=== PATIENT | male | born 1995 | race Caucasian/White ===

== ENCOUNTER 2023-01-31 11:45 | Emergency (ER) | payer OTHER, SELFPAY ==
[2023-01-31 11:50] VITALS: BP 139/77; PULSE 63; RESP 18; TEMP 36.7; O2SAT 100; BMI 31.1
--- NOTE | 2023-01-31 13:32 | XR_ITS ---
The [address] [address] Patient Name: DANNIELLE BAILEY MRN: [id number] date: 1995 Sex: M Assigned Patient Location: ER Current Patient Location: ER Accession/Order Number: [id number] Exam Date: 01/31/2023 13:53 Report Date: 01/31/2023 14:08 At the request of: ROBYN LOZA Procedure: XR chest 1V EXAM: XR chest 1V at 1323 hours HISTORY: SOB COMPARISON: None. TECHNIQUE: AP upright portable chest x-ray FINDINGS: The heart is not enlarged and the vasculature is not distended. No acute infiltrate, effusion or pneumothorax is identified. The osseous structures are grossly intact. XR/XR chest 1V IMPRESSION: No acute infiltrate or evidence of cardiac decompensation. Direct comparison with a previous study would be helpful in determining the chronicity of these findings. Electronically authenticated by: JAYME FOLEY Date: 01/31/2023 14:08
--- NOTE | 2023-01-31 13:32 | ECG_ITS ---
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
[2023-01-31 13:50] LABS: Basophils Percent Auto 0.5 % (0.2-2.0); Eosinophils Absolute Auto 0.1 10^3/uL (0.0-0.7); Eosinophils Percent Auto 1.7 % (0.9-7.0); Hematocrit 40.2 % (42.0-54.0); Hemoglobin 13.9 g/dL (14.0-18.0); Lymphocytes Absolute Auto 2.2 10^3/uL (1.2-3.8); Lymphocytes Percent Auto 38.1 % (20.5-60.0); Mean Corpuscular HGB Conc 34.6 g/dL (29.9-35.2); Mean Corpuscular Volume 83.8 fL (80.0-94.0); Mean Platelet Volume 9.5 fL (9.5-13.5); Monocytes Absolute Auto 0.4 10^3/uL (0.3-0.8); Monocytes Percent Auto 6.3 % (1.7-12.0); Neutrophils Absolute Auto 3.1 10^3/uL (1.4-6.5); Neutrophils Percent Auto 53.4 % (43.0-75.0); Platelet Count 206 10^3/uL (150-450); Red Cell Distribution Width 13.2 % (11.0-15.0); White Blood Count 5.9 10^3/uL (4.0-11.0)
[2023-01-31 13:59] LABS: Anion Gap 12.2; BUN Creatinine Ratio 14.1; Calcium 9.1 mg/dL (8.5-10.1); Carbon Dioxide 29.8 mmol/L (21.0-32.0); Chloride 102 mmol/L (98-107); Estimated GFR (African America >60 (>=60); Estimated GFR (Non-African Ame >60 (>=60); Glucose 92 mg/dL (74-106); Sodium 140 mmol/L (136-145)
--- NOTE | 2023-01-31 14:21 | ED.GENADUL1 ---
HPI - General Adult General Chief complaint: Recheck/Abnormal Lab/Rx Stated complaint: NEEDS TESTED FOR LEAD POISONING Time Seen by Provider: 01/31/23 13:13 History of Present Illness HPI narrative: 27-year-old male presents for some generalized symptoms. He is concerned about lead. 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 He hasn't had a fever or vomiting and he is not complaining of shortness of breath. Sometimes he feels dizzy. Related Data Allergies Allergy/AdvReac Type Severity Reaction Status Date / Time No Known Drug Allergies Allergy Verified 01/31/23 11:50 Review of Systems ROS Narrative A ten point review of systems is negative except as noted above. PFSH PFSH Social History Smoking status: Current every day smoker Exam Narrative Exam Narrative: Nurses note and vital signs reviewed and patient is not hypoxic. General: The patient appears well and in no apparent distress. Patient is resting comfortably on cart. Skin: Warm, dry, no pallor noted. There is no rash noted. Head: Normocephalic, atraumatic Eye: Normal conjunctiva, no drainage Ears, Nose, Mouth, and Throat: oral mucosa is moist. Nares patent. Cardiovascular: Regular Rate and Rhythm Respiratory: Patient is in no distress, no accessory muscle use, lungs are clear to auscultation, no wheezing, rales or rhonchi Back: non-tender GI: ssoft and nontender Musculoskeletal: The patient has no evidence of calf tenderness, no pitting edema, symmetrical pulses noted bilaterally Neurological: A&O x4, normal speech Psychiatric: Cooperative Constitutional Vital Signs, click to edit/add: Last Vital Signs Temp 98.1 F 01/31/23 11:50 Pulse 63 01/31/23 11:50 Resp 18 01/31/23 11:50 BP 139/77 01/31/23 11:50 Pulse Ox 100 01/31/23 11:50 O2 Del Method Room Air 01/31/23 11:50 Course Vital Signs Vital signs: Vital Signs Temperature 98.1 F 01/31/23 11:50 Pulse Rate 63 01/31/23 11:50 Respiratory Rate 18 01/31/23 11:50 Blood Pressure 139/77 01/31/23 11:50 Pulse Oximetry 100 01/31/23 11:50 Oxygen Delivery Method Room Air 01/31/23 11:50 Temperature 98.1 F 01/31/23 11:50 Pulse Rate 63 01/31/23 11:50 Respiratory Rate 18 01/31/23 11:50 Blood Pressure 139/77 01/31/23 11:50 Pulse Oximetry 100 01/31/23 11:50 Oxygen Delivery Method Room Air 01/31/23 11:50 Medical Decision Making MDM Narrative Medical decision making narrative: laboratory analysis as well as his chest x-ray are negative. He'll be discharged home and referred to PCP for follow-up. There is no indication for emergent leg testing at this point. Differential Diagnosis Differential Diagnosis: chemical exposure, headache, anemia, electrolyte imbalance Lab Data Lab results reviewed: Yes I reviewed the patient's lab results Labs: Lab Results 01/31/23 Range/Units 13:44 WBC 5.9 (4.0-11.0) 10^3/uL RBC 4.80 (4.70-6.10) 10^6/uL Hgb 13.9 L (14.0-18.0) g/dL Hct 40.2 L (42.0-54.0) % MCV 83.8 (80.0-94.0) fL MCH 29.0 (25.9-34.0) pg MCHC 34.6 (29.9-35.2) g/dL RDW 13.2 (11.0-15.0) % Plt Count 206 (150-450) 10^3/uL MPV 9.5 (9.5-13.5) fL Neut % (Auto) 53.4 (43.0-75.0) % Lymph % (Auto) 38.1 (20.5-60.0) % [place] % (Auto) 6.3 (1.7-12.0) % Eos % (Auto) 1.7 (0.9-7.0) % Baso % (Auto) 0.5 (0.2-2.0) % Neut # (Auto) 3.1 (1.4-6.5) 10^3/uL Lymph # (Auto) 2.2 (1.2-3.8) 10^3/uL [place] # (Auto) 0.4 (0.3-0.8) 10^3/uL Eos # (Auto) 0.1 (0.0-0.7) 10^3/uL Baso # (Auto) 0.0 (0.0-0.1) 10^3/uL Abs Immat Gran (auto) 0.00 (0.00-0.03) 10^3/uL Imm/Tot Granulo (auto) 0.0 (0.0-0.5) % Sodium 140 (136-145) mmol/L Potassium 4.0 (3.5-5.1) mmol/L Chloride 102 (98-107) mmol/L Carbon Dioxide 29.8 (21.0-32.0) mmol/L Anion Gap 12.2 BUN 14.0 (7.0-18.0) mg/dL Creatinine 0.99 (0.70-1.30) mg/dL Est GFR ( Amer) >60 (>=60) Est GFR (Non-Af Amer) >60 (>=60) BUN/Creatinine Ratio 14.1 Glucose 92 (74-106) mg/dL Calcium 9.1 (8.5-10.1) mg/dL Imaging Data Chest x-ray: Radiologist's impression: Procedure: XR chest 1V EXAM: XR chest 1V at 1323 hours HISTORY: SOB COMPARISON: None. TECHNIQUE: AP upright portable chest x-ray FINDINGS: The heart is not enlarged and the vasculature is not distended. No acute infiltrate, effusion or pneumothorax is identified. The osseous structures are grossly intact. IMPRESSION: No acute infiltrate or evidence of cardiac decompensation. Direct comparison with a previous study would be helpful in determining the chronicity of these findings. Electronically authenticated by: JAYME FOLEY Date: 01/31/2023 14:08 Discharge Plan Discharge Chief Complaint: Recheck/Abnormal Lab/Rx Clinical Impression: Headache Patient Disposition: Home, Self-Care Time of Disposition Decision: 14:20 Condition: Good Mode of Transportation: Private Vehicle Instructions: Acute Headache (ED) Stand Alone Forms: Portal Instructions Referrals: Physician,Non-Staff, MD [Primary Care Provider] - 1 week
== END 2023-01-31 14:35 | disposition home or self-care (01) ==
PROVIDERS: Emergency Provider Emergency Medicine
DX: R51.9 Headache, unspecified (principal); F17.210 Nicotine dependence, cigarettes, uncomplicated
CPT/HCPCS: 36415; 71045; 80048; 85025; 93005; 99285

== ENCOUNTER 2025-01-29 11:14 | Emergency (ER) | payer OTHER, SELFPAY ==
[2025-01-29 11:21] VITALS: BP 134/82; PULSE 60; TEMP 37; O2SAT 99; BMI 32.9
--- NOTE | 2025-01-29 11:31 | US_ITS ---
The [address] [address] Patient Name: DANNIELLE BAILEY MRN: [id number] date: 1995 Sex: M Assigned Patient Location: ER Current Patient Location: ER Accession/Order Number: [id number] Exam Date: 01/29/2025 11:40 Report Date: 01/29/2025 12:31 At the request of: KALIE TOBIAS MD Procedure: US scrotum doppler SCROTAL ULTRASOUND WITH DUPLEX IMAGING COMPARISON: none CLINICAL DATA: Right testicular pain for the past 3 days The right testis measures 4.8 x 2.7 x 3.0 cm. The left measures 4.4 x 2.6 x 3.3 cm. There is normal echogenicity. There is a small calcification at the inferior pole of the right testis. There are no solid testicular masses. There is documentation of bilateral duplex and color Doppler testicular blood flow. The epididymal heads are similar in size. There is a tiny 5 mm right epididymal cyst. There are prominent vessels adjacent to the testes with increased blood flow on Valsalva suggesting varicoceles. There is a tiny left hydrocele. US/US scrotum doppler IMPRESSION: NO INTRATESTICULAR MASS OR TORSION. 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 TINY RIGHT EPIDIDYMAL CYST. TINY LEFT HYDROCELE. Impression dictated by: Aminah Archer M.D. 01/29/2025 12:31 PM Dictation Location: [place] [address] Electronically authenticated by: [id number] Y Date: 01/29/2025 12:31
[2025-01-29 11:54] LABS: Glucose Urine UA NEGATIVE (NEGATIVE)
--- NOTE | 2025-01-29 12:47 | ED_ITS ---
HPI HPI - General Adult General Chief complaint: Urogenital-Male Stated complaint: TESTICLE PAIN Time Seen by Provider: 01/29/25 11:30 Source: patient Mode of arrival: walk-in Limitations: no limitations History of Present Illness HPI narrative: The patient is coming to the ER with a complaint of right testicular pain that been going on for the last few days, patient denies any fall or trauma he denies any penile discharge, mentioned that he is sexually active and he does not usually use protection The patient denies any fever or chills or any other concerns The pain is mostly to the posterior aspect of the testicles Related Data Previous Rx's ?Medication ?Instructions ?Recorded doxycycline hyclate 100 mg tablet 100 mg PO BID 7 days #14 tabs 01/29/25 naproxen 250 mg tablet 250 mg PO Q12H PRN pain #20 tabs 01/29/25 Allergies Allergy/AdvReac Type Severity Reaction Status Date / Time No Known Drug Allergies Allergy Verified 01/29/25 11:24 Opioid HPI Opioid Management Most Recent Opioid Data: Last Pain Scale 5 Today, 11:21 Review of Systems ROS Status of ROS 10 or more systems reviewed and unremark able except as noted in history and below PFSH PFSH Social History Smoking status: Current every day smoker Little interest or pleasure in doing things: not at all Feeling down, depressed, or hopeless: not at all Exam Narrative Exam Narrative: Nurses notes and vital signs reviewed and patient is not hypoxic. General: Well-appearing and in no apparent distress. Skin: Warm, dry, no pallor noted. No rash. Head: Normocephalic, atraumatic. Neck: Supple, non-tender. Cardiovascular: Regular Rate and Rhythm without murmur, gallop or rub. Respiratory: No accessory muscle use or respiratory distress. Lungs are clear to auscultation, no wheezing, rales or rhonchi Chest Wall: no tenderness GI: Abdomen is soft, non-distended. Normal bowel sounds. No masses appreciated. No tenderness to palpation. No rebound, guarding, or rigidity noted. Scrotal exam done with the presence of the caring nurse: The patient have no testicular swelling no enlargement of the testicles as well as no elevation the patient was complaining tenderness upon palpation of the posterior aspect of the right testicle but there is no obvious skin changes there is also no penile changes no rash Neurological: A&O x4. No cranial nerve dysfunction observed. No truncal ataxia. Moves all extremities. Sensation intact. Psychiatric: Cooperative and interactive. Normal mood and affect. Constitutional Vital Signs, click to edit/add: Last Vital Signs Temp 98.6 F 01/29/25 11:21 Pulse 60 01/29/25 11:21 Resp 14 01/29/25 11:21 BP 134/82 01/29/25 11:21 Pulse Ox 99 01/29/25 11:21 O2 Del Method Room Air 01/29/25 11:21 Course Vital Signs Vital signs: Vital Signs Temperature 98.6 F 01/29/25 11:21 Pulse Rate 60 01/29/25 11:21 Respiratory Rate 14 01/29/25 11:21 Blood Pressure 134/82 01/29/25 11:21 Pulse Oximetry 99 01/29/25 11:21 Oxygen Delivery Method Room Air 01/29/25 11:21 Temperature 98.6 F 01/29/25 11:21 Pulse Rate 60 01/29/25 11:21 Respiratory Rate 14 01/29/25 11:21 Blood Pressure 134/82 01/29/25 11:21 Pulse Oximetry 99 01/29/25 11:21 Oxygen Delivery Method Room Air 01/29/25 11:21 Medical Decision Making MDM Narrative Medical decision making narrative: Urinalysis showed no acute pathology Ultrasound of the testicles showed no acute pathology as well although there is a epididymal cyst The patient will be treated for possible epididymitis specially that he is sexually active he will be treated with ceftriaxone IM in the ER as well as doxycycline to go home as well as naproxen for pain The patient is to follow up with primary care physician in next 2-3 days or to return to the emergency department should any of the signs or symptoms worsen or new symptoms develop. The patient agrees with the following Diagnosis and Treatment plan and the patient will be discharged home. Lab Data Labs: Lab Results 01/29/25 Range/Units 11:46 Urine Color Yellow (YELLOW) Urine Clarity Clear (CLEAR) Urine pH 7.0 (5.0-9.0) Ur Specific [place] 1.020 (1.005-1.025) Urine Protein Negative (NEG/TRACE) mg/dL Urine Glucose (UA) Negative (NEGATIVE) mg/dL Urine Ketones Negative (NEGATIVE) mg/dL Urine Occult Blood Negative (NEGATIVE) Urine Nitrite Negative (NEGATIVE) Urine Bilirubin Negative (NEGATIVE) Urine Urobilinogen 1.0 (0.2-1.0) EU/dL Ur Leukocyte Esterase Negative (NEGATIVE) Discharge Plan Discharge Chief Complaint: Urogenital-Male Clinical Impression: Epididymitis Patient Disposition: Home, Self-Care Time of Disposition Decision: 12:48 Condition: Good Prescriptions / Home Meds: New doxycycline hyclate 100 mg tablet 100 mg PO BID 7 Days Qty: 14 0RF naproxen 250 mg tablet 250 mg PO Q12H PRN (Reason: pain) Qty: 20 0RF Print Language: [place] Instructions: Epididymitis (ED), Scrotal Pain (ED) Referrals: Jose Carver MD [Primary Care Provider] - 1 week
[2025-01-29] MEDS: NAPROXEN 250 MG TABLET 500 MG PO (13:02)
[2025-01-29] MEDS: CEFTRIAXONE 500 MG VIAL IM (13:02)
[2025-01-31 04:07] LABS: Neisseria gonorrhoeae, NAA Negative (Negative)
== END 2025-01-29 13:11 | disposition home or self-care (01) ==
PROVIDERS: Emergency Provider Emergency Medicine; PCP Family Medicine
DX: N45.1 Epididymitis (principal); F17.200 Nicotine dependence, unspecified, uncomplicated
CPT/HCPCS: 76870; 81003; 87491; 87591; 93976; 96372; 99284; J0696

== ENCOUNTER 2025-05-12 23:20 | Emergency (ER) | payer OTHER, SELFPAY ==
[2025-05-12 23:24] VITALS: BP 121/87; PULSE 60; TEMP 37; O2SAT 98; BMI 32.9
--- NOTE | 2025-05-12 23:52 | ED_ITS ---
HPI - Male Genitourinary General Chief complaint: Urogenital-Male Stated complaint: Pain in L testicle Time Seen by Provider: 05/12/25 23:45 Source: patient Mode of arrival: walk-in History of Present Illness HPI Narrative: cc - left scrotal/testicular pain Started a couple of weeks ago and has waxed and waned since. Tonight it woke him from sleeping. He took Aleve about one hour ago - no improvement so he came to the ED for evaluation. Admits to occasional pain with urination - at the tip of the glans. Denies any chance of STD. States that in the last few days he has started to experience some pain into the lower left abdomen and lower left back but not into the flank. No blood in urine. No prior history of kidney stone. Had similar symptoms - scrotal pain - in January and had US revealing varicocele but no torsion. Related Data Previous Rx's ?Medication ?Instructions ?Recorded cephalexin 500 mg capsule 500 mg PO BID 7 days #14 cap s 05/13/25 nabumetone 750 mg tablet 750 mg PO BID PRN pain #14 t abs 05/13/25 Allergies Allergy/AdvReac Type Severity Reaction Status Date / Time No Known Drug Allergies Allergy Verified 01/29/25 11:24 PFSH PFS Social History Smoking status: Current every day smoker Little interest or pleasure in doing things: not at all Feeling down, depressed, or hopeless: not at all Exam Narrative Exam Narrative: Nurses notes and vital signs reviewed and patient is not hypoxic. afebrile General: Well-appearing and in no apparent distress. Skin: Warm, dry, no pallor noted. No rash to penis, scrotum or pelvis. Eye: Pupils are equal, round and EOMI. No scleral icterus. Ears, Nose, Mouth, and Throat: Oral mucosa is moist Cardiovascular: Regular Rate and Rhythm without murmur, gallop or rub. Respiratory: No accessory muscle use or respiratory distress. Lungs are clear to auscultation, no wheezing, rales or rhonchi Back: No CVA tenderness Musculoskeletal: normal ROM GI: Abdomen is soft, non-distended. Normal bowel sounds. No scrotal or inguinal masses appreciated. No tenderness to palpation. No rebound, guarding, or rigidity noted. Genital: Tenderness on palpation of the left testicle. No scrotal mass or epididymal tenderness. Normal-appearing external male genitalia. No penile or scrotal lesions. Neurological: A&O x4. No cranial nerve dysfunction observed. No truncal ataxia. Moves all extremities. Sensation intact. Psychiatric: Cooperative and interactive. Normal mood and affect. Constitutional Vital Signs, click to edit/add: Last Vital Signs Temp 98.6 F 05/12/25 23:24 Pulse 60 05/12/25 23:24 Resp 18 05/12/25 23:24 BP 121/87 05/12/25 23:24 Pulse Ox 98 05/12/25 23:24 O2 Del Method Room Air 05/12/25 23:24 Course Vital Signs Vital signs: Vital Signs Temperature 98.6 F 05/12/25 23:24 Pulse Rate 60 05/12/25 23:24 Respiratory Rate 18 05/12/25 23:24 Blood Pressure 121/87 05/12/25 23:24 Pulse Oximetry 98 05/12/25 23:24 Oxygen Delivery Method Room Air 05/12/25 23:24 Temperature 98.6 F 05/12/25 23:24 Pulse Rate 60 05/12/25 23:24 Respiratory Rate 18 05/12/25 23:24 Blood Pressure 121/87 05/12/25 23:24 Pulse Oximetry 98 05/12/25 23:24 Oxygen Delivery Method Room Air 05/12/25 23:24 MDM - Male Genitourinary MDM Narrative Medical decision making narrative: 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 Patient was ordered to receive an ultrasound of the scrotum including Doppler of the left testicle. Urine was also ordered to be obtained and sent for testing. Urinalysis with large occult blood, trace leukocyte esterase, greater than 100 RBCs, 2-5 WBCs, small bacteria. Culture is pending. Ultrasound of the scrotum and testicle, according to the radiologist, was notable for small right and left varicocele, small right and left hydrocele with the left greater than the right. No abscess, hematoma, testicular torsion, intratesticular mass, orchitis or epididymitis were noted. Patient was discharged home with prescriptions for antibiotic and for pain. Primary care physician follow-up recommended but he can return to the ED if he should worsen. He was also given info for Urology group follow up, as needed, if symptoms persist. Medical Records Attestation: I reviewed the patient's medical records. Lab Data Attestation: I reviewed the patient's lab results. Labs: Lab Results 05/13/25 Range/Units 01:00 Urine Color Yellow (YELLOW) Urine Clarity Cloudy A (CLEAR) Urine pH 8.0 (5.0-9.0) Ur Specific [place] 1.020 (1.005-1.025) Urine Protein Trace (NEG/TRACE) mg/dL Urine Glucose (UA) Negative (NEGATIVE) mg/dL Urine Ketones Negative (NEGATIVE) mg/dL Urine Occult Blood Large A (NEGATIVE) Urine Nitrite Negative (NEGATIVE) Urine Bilirubin Negative (NEGATIVE) Urine Urobilinogen 1.0 (0.2-1.0) EU/dL Ur Leukocyte Esterase Trace A (NEGATIVE) Urine RBC >100 A (0-2) #/HPF Urine WBC 2-5 A (NONE SEEN) #/HPF Ur Squamous Epith Cells None seen (NONE/RARE) #/LPF Urine Crystals None seen (None Seen) #/HPF Amorphous Sediment Many Urine Bacteria Small A (NONE SEEN) #/HPF Urine Casts None seen (NONE SEEN) #/LPF Urine Mucus None seen (NONE SEEN) Ur [place] [place] Discharge Chief Complaint: Urogenital-Male Clinical Impression: Urinary tract infection, Left testicular pain Patient Disposition: Home, Self-Care Time of Disposition Decision: 01:55 Prescriptions / Home Meds: New nabumetone 750 mg tablet 750 mg PO BID PRN (Reason: pain) Qty: 14 0RF cephalexin 500 mg capsule 500 mg PO BID 7 Days Qty: 14 0RF Print Language: Libyan Instructions: Urinary Tract Infection in Men (ED), Testicle Pain (ED) Referrals: Josiah Teague MD [Physician, Urology] - As needed Jose Carver MD [Primary Care Provider] - 1 week
--- OUTSIDE RECORDS SUMMARY | 2025-05-12 23:52 | XMS_ITS | Patient Health Record ---
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 Yes c hewing Tobacco Control (Standard) Question Answer Notes Tobacco use: Former smoker When did you start smoking?02/12/2017When did you stop smoking?02/12/2021UDIT-C (Standard) Question Answer Notes Did you have a drink containing alcohol in the p ast year? Yes How often did you have a drink containing alcohol in the past year?Never (0 point)How many drinks did you have on a typical day when you were drinking in the past year?3 or 4 drinks (1 point)How often did you have six or more drinks on one occasion in the past year?2 to 3 times per week (3 points)Points4 InterpretationPositive Vital Signs Blood pressure diastolic 78 mm Hg 02/04/2025 Oxbqel90 in02/04/2025lood pressure gargpdto452 mm Hg02/04/20258072Zfrsqn112 lbs 02/04/2025BMI35.36 kg/m202/04/2025 Encounters Encounter Location Date Provider Diagnosis [facility] [address] [place] [address] 02/04/2025 Mario Mendes Well adult Z00.0 0 [facility] [address] [place] [address] 02/04/2025 Mario Mendes [id number], [place] [address]/03/2025Mario Mendes Assessments Encounter Date Diagnosis (ICD Code) Assessment Notes Treatment Notes Treatment Clinical Notes Section Notes 02/04/2025 Well adult (ICD-10 - Z00.00) Plan Of Treatment No Information Medical (General) History Medical History History ICD Code former smoker
[2025-05-13 01:29] LABS: Glucose Urine UA NEGATIVE (NEGATIVE)
[2025-05-13 01:46] LABS: Cast Seen? NONE SEEN #/LPF (NONE SEEN); Crystals Seen? None Seen #/HPF (None Seen); Urine Culture Indicated YES-FRMC
[2025-05-13 02:26] VITALS: BP 132/86; PULSE 54; TEMP 36.9; O2SAT 100
== END 2025-05-13 02:41 | disposition home or self-care (01) ==
PROVIDERS: Emergency Provider Emergency Medicine; PCP Family Medicine
DX: N39.0 Urinary tract infection, site not specified (principal); N50.812 Left testicular pain; F17.200 Nicotine dependence, unspecified, uncomplicated
CPT/HCPCS: 76870; 81001; 87086; 93976; 99284